=== PATIENT | male | born 1995 | race Caucasian/White ===

== ENCOUNTER 2016-09-13 09:02 | Emergency (ER) | payer OTHER ==
[~2016-09-13] VITALS: Ht 180.3 cm; Wt 86.2 kg
[2016-09-13 09:05] VITALS: BP 94/59
--- NOTE | 2016-09-13 09:55 | ED UPPER/LOWER EXTREMITY COMPL ---
History of Present Illness General Chief Complaint: Lower Extremity Injury Stated Complaint: "SOMEONE FELL ON MY LEG" RT ANKLE AND RT KNEE PAIN Source: patient Exam Limitations: no limitations Vital Signs & Intake/Output Vital Signs & Intake/Output Vital Signs Date Time Temp Pulse Resp B/P B/P Pulse O2 O2 Flow FiO2 Mean Ox Delivery Rate 09/13 0922 98 09/13 0905 98.0 116 18 94/59 98 Room Air Room Air Allergies Coded Allergies: No Known Allergies (09/13/16) Reconcile Medications Ibuprofen 800 MG TABLET 1 TAB PO TID PRN pain Triage Note: TRIAGE: 20 Y/O MALE PRESENTS C/O 9/10 PAIN TO LEFT LEG SINCE LAST NIGHT S/P [facility] INCIDENT. REPORTS SOMEONE FELL ON HIS LEFT LEG. MEDIAL ASPECT OF LEFT KNEE 9/10 PAIN. TOOK ADVIL 600MG AT 0800 THIS MORNING; MINIMAL RELIEF NOTED. Triage Nurses Notes Reviewed? yes HPI: 20-year-old male arrived to triage to room 4 complaining of left ankle and left knee pain since last night. He reports he was wrestling with a friend last night and leg got twisted. He is complaining of left ankle and left knee pain, swelling. He has been using ice and taking ibuprofen for pain. He reports the pain is moderate at this time. Denies any other injury. Past History Travel History Traveled to [place] past 21 day No Medical History Any Pertinent Medical History? 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 No Review of Systems Review of Systems Constitutional: Reports: no symptoms. EENTM: Reports: no symptoms. Respiratory: Reports: no symptoms. Cardiovascular: Reports: no symptoms. Gastrointestinal/Abdominal: Reports: no symptoms. Genitourinary: Reports: no symptoms. Musculoskeletal: Reports: see HPI, joint pain. Skin: Reports: no symptoms. Neurological/Psychological: Reports: no symptoms. Hematologic/Endocrine: Reports: no symptoms. Immunological: Reports: no symptoms. All Other Systems: Reviewed and Negative Physical Exam Physical Exam General Appearance: well developed/nourished, mild distress Head: atraumatic Eyes: Bilateral: PERRL, EOMI. Ears, Nose, Throat: normal pharynx, normal ENT inspection, hearing grossly normal Neck: normal inspection, supple Cardiovascular/Respiratory: regular rate/rhythm Back: normal inspection Leg Left: normal range of motion, normal inspection Leg Right: normal range of motion, normal inspection Hip Left: normal range of motion, normal inspection Hip Right: normal range of motion, normal inspection Knee Left: normal range of motion, normal inspection, tenderness (see diagram) Knee Right: normal range of motion, normal inspection Foot Left: normal inspection, normal range of motion Foot Right: normal inspection, normal range of motion Neurologic/Tendon: normal sensation, normal motor functions, normal tendon functions Skin: intact, normal color, warm/dry Lymphatic: no anterior cervical suzanne Comments: left ankle swollen and tender- see diagram Diagram Feet Left/Right 1) Tenderness, edema 2) Tenderness, edema Progress Differential Diagnosis: fracture, sprain, tendon injury Plan of Care: Orders Procedure Date/time Status Durable Medical Equipment 09/13 1014 Active Durable Medical Equipment 09/13 1011 Active Diagnostic Imaging: Viewed by Me: Radiology Read. Discussed w/RAD: Radiology Read. Radiology Impression: no acute abnormality, no fracture, no dislocation, no foreign body seen, see below Comments: PATIENT: ANNABELLE JUSTIN PRESENT AGE: 20 PATIENT ACCOUNT NO: [id number] : 95 LOCATION: [facility] ORDERING PHYSICIAN: ALTHEA CELESTIN APRN SERVICE DATE: 09/13/16 EXAM TYPE: RAD - XRY-ANKLE 3 OR MORE VIEWS L EXAMINATION: XR ANKLE, LEFT CLINICAL INFORMATION: Twisted left ankle. Pain. COMPARISON: None TECHNIQUE: AP, lateral, and mortise views of the left ankle. FINDINGS: There is no visible acute fracture or dislocation. The ankle mortise and subtalar joints are normal. There is mild lateral malleolar soft tissue swelling IMPRESSION: Mild lateral malleolar soft tissue swelling. No visible acute fracture or dislocation seen. DICTATED BY: MARJAN JJ MD DATE/TIME DICTATED:09/13/16952 BUILDING DISMANTLER:JOHN DATE/TIME TRANSCRIBED:09/13/16952 CONFIDENTIAL, DO NOT COPY WITHOUT APPROPRIATE AUTHORIZATION. <Electronically signed in Other Vendor System> SIGNED BY: MARJAN JJ MD 09/13/16 0959 Explained results of x-ray to patient and his mother. We will provide a or so boot on his left ankle. Instructed him to use ice, elevation for left knee and left ankle. Ibuprofen 800 mg 3 times a day as needed for pain and ice therapy. He will follow up with orthopedics if pain does not get any better within a week 's time. Departure Departure Time of Disposition: 1008 Disposition: HOME OR SELF CARE Condition: Stable Clinical Impression Primary Impression: Left ankle sprain Qualifiers: Encounter type: initial encounter Involved ligament of ankle: other ligament Qualified Code: S93.492A - Sprain of other ligament of left ankle, initial encounter Secondary Impressions: Strain of left knee Qualifiers: Encounter type: initial encounter Qualified Code: S86.912A - Strain of unspecified muscle(s) and tendon(s) at lower leg level, left leg, initial encounter Referrals: SAMANTHA SANZ,TRA Callejas (PCP/Family) Additional Instructions: Please follow up with Dr. Johnson this week if pain continues. Use ice 3-4 times a day for the next few days. Ibuprofen 800 mg 3 times a day as needed for pain. Please take with food. Please keep splint on for comfort. Elevate your left leg when not ambulating. Departure Forms: Customer Survey General Discharge Information Prescriptions: Current Visit Scripts Ibuprofen 1 TAB PO TID PRN pain #30 TAB Procedures Splinting Location: left ankle Manual Alignment Performed: No Pre-Made Type: cam walker Splint Applied By: splint applied by other (rn) Pre-Proc Neuro Vasc Exam: normal Post-Proc Neuro Vasc Exam: normal
--- NOTE | 2016-09-13 09:59 | RADIOLOGY REPORT ---
EXAMINATION: XR ANKLE, LEFT CLINICAL INFORMATION: Twisted left ankle. Pain. COMPARISON: None TECHNIQUE: AP, lateral, and mortise views of the left ankle. FINDINGS: There is no visible acute fracture or dislocation. The ankle mortise and subtalar joints are normal. There is mild lateral malleolar soft tissue swelling IMPRESSION: Mild lateral malleolar soft tissue swelling. No visible acute fracture or dislocation seen.
[2016-09-13] MEDS ORDERED: IBUPROFEN800 M1 PO (10:11)
== END 2016-09-13 10:27 ==
LOC: ERH 09:02
DX: S93.402A Sprain of unspecified ligament of left ankle, initial encounter (principal); S86.812A Strain of other muscle(s) and tendon(s) at lower leg level, left leg, initial encounter; X58.XXXA Exposure to other specified factors, initial encounter; Y93.83 Activity, rough housing and horseplay; Y92.9 Unspecified place or not applicable
CPT/HCPCS: 73610-LT